=== PATIENT | female | born 1945 | race Two or more races ===

== ENCOUNTER 2017-07-08 05:15 | Day surgery (SDC) | payer OTHER ==
[~2017-07-08 05:15] MED LIST: ANTIVERT PO; BONIVA3 MG/3 ML IV; COZAAR50 MG; COZAAR50 MG PO; SYNTHROID50 MCG PO; TOPROL XL25 M1 PO
[2017-07-08] MEDS ORDERED: MACROBID 100 M100 MG PO (10:18)
[2017-07-08] MEDS ORDERED: ULTRACET PO (10:19)
== END 2017-07-08 14:00 | disposition home or self-care (01) ==
LOC: CIR.AMB 05:15
DX: N81.3 Complete uterovaginal prolapse (principal)